=== PATIENT | female | born 1955 | race Native Hawaiian/Other Pacific Islander ===

== ENCOUNTER 2017-11-20 23:08 | Emergency (ER) | payer BC ==
[~2017-11-20] VITALS: Ht 162.6 cm; Wt 65.8 kg
[2017-11-21 01:18] VITALS: BP 138/76; TEMP 98
== END 2017-11-21 01:20 | disposition home or self-care (01) ==
LOC: ED 23:08
PROC: 0T9B70Z Drainage of Bladder with Drainage Device, Via Natural or Artificial Opening (ICD-10-PCS; principal; 2017-11-20)
DX: N13.9 Obstructive and reflux uropathy, unspecified (principal); N39.0 Urinary tract infection, site not specified; Z98.890 Other specified postprocedural states
CPT/HCPCS: 51702; 81000; 87077; 87088; 99282

== ENCOUNTER 2020-09-05 14:30 | Outpatient (CLI) | payer OTHER | END 2020-09-05 22:36 | disposition home or self-care (01) | LOC: MRI 14:30 | DX: G89.4 Chronic pain syndrome (principal) ==

== ENCOUNTER 2020-10-10 14:07 | Outpatient (CLI) | payer OTHER | END 2020-10-10 19:16 | disposition home or self-care (01) | LOC: LAB 14:07 | PROVIDERS: ATTEND Internal Medicine | DX: R19.7 Diarrhea, unspecified (principal) | CPT/HCPCS: 82272; 83630; 87015; 87045; 87324; 87328; 87329; 87449; 87899 ==

== ENCOUNTER 2021-03-07 09:42 | Outpatient (CLI) | payer OTHER | END 2021-03-07 21:21 | disposition home or self-care (01) | LOC: LAB 09:42 | PROVIDERS: ATTEND Internal Medicine Gastroenterology | DX: K59.1 Functional diarrhea (principal) | CPT/HCPCS: 82272; 82705; 83630; 87015; 87045; 87324; 87328; 87329; 87449; 87899 ==

== ENCOUNTER 2021-10-30 13:19 | Emergency (ER) | payer OTHER ==
[~2021-10-30] VITALS: Ht 162.6 cm; Wt 66.7 kg
[2021-10-30 13:21] VITALS: TEMP 96.7
[2021-10-30 14:20] VITALS: BP 128/78
== END 2021-10-30 14:21 | disposition home or self-care (01) ==
LOC: ED 13:19
DX: R53.1 Weakness (principal); T40.715A Adverse effect of cannabis, initial encounter; X58.XXXA Exposure to other specified factors, initial encounter; Y92.89 Other specified places as the place of occurrence of the external cause
CPT/HCPCS: 99281

== ENCOUNTER 2022-04-16 13:04 | Outpatient (CLI) | payer OTHER | END 2022-04-16 19:31 | disposition home or self-care (01) | LOC: CT 13:04 | PROVIDERS: ATTEND Physical Medicine & Rehabilitation | DX: M54.16 Radiculopathy, lumbar region (principal) ==

== ENCOUNTER 2022-05-02 10:42 | Outpatient (CLI) | payer OTHER | END 2022-05-02 19:15 | disposition home or self-care (01) | LOC: LABW 10:42 | PROVIDERS: ATTEND Internal Medicine Gastroenterology | DX: K64.0 First degree hemorrhoids (principal) | CPT/HCPCS: 82272 ==

== ENCOUNTER 2022-05-06 09:03 | Outpatient (CLI) | payer OTHER | END 2022-05-06 18:45 | disposition home or self-care (01) | LOC: NM 09:03 | PROVIDERS: ATTEND Physical Medicine & Rehabilitation | DX: M99.9 Biomechanical lesion, unspecified (principal); M54.89 Other dorsalgia | CPT/HCPCS: A9561 ==

== ENCOUNTER 2022-08-21 09:23 | Outpatient (CLI) | payer OTHER ==
[2022-08-21 10:17] LABS: PARTIAL THROMBOPLASTIN TIME 25.8 SECONDS (24.5-33.6)
== END 2022-08-21 19:10 | disposition home or self-care (01) ==
LOC: CT 09:23 → LABW 09:23 → CT 09:30
PROVIDERS: ATTEND Neurological Surgery
DX: M51.36 Other intervertebral disc degeneration, lumbar region (principal); M48.061 Spinal stenosis, lumbar region without neurogenic claudication; M43.16 Spondylolisthesis, lumbar region; M51.37 Other intervertebral disc degeneration, lumbosacral region; E78.5 Hyperlipidemia, unspecified; E11.9 Type 2 diabetes mellitus without complications
CPT/HCPCS: 36415; 82565; 84520; 85610; 85730; Q9963

== ENCOUNTER 2022-10-07 12:57 | Outpatient (CLI) | payer OTHER ==
[2022-10-07 15:13] LABS: PLATELET COUNT 247 K/uL (152-353)
[2022-10-07 15:35] LABS: POTASSIUM 4.4 mmol/L (3.6-5.2)
== END 2022-10-07 20:29 | disposition home or self-care (01) ==
LOC: LABW 12:57
PROVIDERS: ATTEND Neurological Surgery
DX: Z01.818 Encounter for other preprocedural examination (principal); M48.061 Spinal stenosis, lumbar region without neurogenic claudication; Z79.01 Long term (current) use of anticoagulants
CPT/HCPCS: 36415; 80048; 85027; 93005

== ENCOUNTER 2022-11-26 11:13 | Outpatient (CLI) | payer OTHER ==
[2022-11-26 11:41] LABS: POTASSIUM 5.2 mmol/L (3.6-5.2)
[2022-11-26 11:46] LABS: PLATELET COUNT 267 K/uL (152-353)
== END 2022-11-26 20:35 | disposition home or self-care (01) ==
LOC: LABW 11:13
PROVIDERS: ATTEND Neurological Surgery
DX: Z01.818 Encounter for other preprocedural examination (principal); Z20.822 Contact with and (suspected) exposure to COVID-19; M48.061 Spinal stenosis, lumbar region without neurogenic claudication; Z79.01 Long term (current) use of anticoagulants
CPT/HCPCS: 36415; 80048; 85027; 87635; U0003

== ENCOUNTER 2023-08-20 10:05 | Day surgery (SDC) | payer OTHER ==
[~2023-08-20] VITALS: Ht 165.1 cm; Wt 68.0 kg
== END 2023-08-20 11:55 | disposition home or self-care (01) ==
LOC: OR 10:05
PROVIDERS: ATTEND Internal Medicine Gastroenterology
PROC: 0DD78ZX Extraction of Stomach, Pylorus, Via Natural or Artificial Opening Endoscopic, Diagnostic (ICD-10-PCS; principal; 2023-08-20)
DX: K20.90 Esophagitis, unspecified without bleeding (principal); K44.9 Diaphragmatic hernia without obstruction or gangrene; K29.00 Acute gastritis without bleeding; K21.9 Gastro-esophageal reflux disease without esophagitis; D50.9 Iron deficiency anemia, unspecified
CPT/HCPCS: J2001; J2704; J7120

== ENCOUNTER 2024-01-05 10:12 | Outpatient (CLI) | payer OTHER | END 2024-01-05 18:52 | disposition home or self-care (01) | LOC: MAMMO 10:12 | PROVIDERS: ATTEND Specialist | DX: Z12.31 Encounter for screening mammogram for malignant neoplasm of breast (principal) ==